=== PATIENT | male | born 1995 | race Caucasian/White ===

== ENCOUNTER 2022-03-07 22:46 | Emergency (ER) | payer SELFPAY ==
[2022-03-07] MEDS ORDERED: AUGMENTIN 875 MG TAB (AMOXICILLIN/CLAVULANATE) PO STA (22:58)
[2022-03-07] MEDS ORDERED: IBUPROFEN 800 MG (MOTRIN) TAB PO STA (22:58)
--- NOTE | 2022-03-07 22:59 | ED EENT ---
History of Present Illness General Chief Complaint: Dental Problems/Pain Stated Complaint: DENTAL PAIN Nursing Triage Note: Pt complaining of bilateral dental pain but states the right side is worse than the left Source: patient History of Present Illness Date Seen by Provider: Mar 07, 2022 Time Seen by Provider: 22:50 Initial Comments 26 yo male presenting with complaints of increasing dental pain to his wisdom teeth bilaterally but worse on right side. He reports having pain with this for over 4 5 years. He had been told that he needed his wisdom teeth removed but was not able to get that done while he was in the . He has had pain off and on over the years but usually gets better on its own. In the last few days he has had increasing dental pain to his wisdom teeth and it was worse on the right side. He denies having fever, chills, drainage from the teeth, acute trauma, facial swelling. He has tried [id number] Tylenol and ibuprofen with little to no improvement. He does not have a primary care provider or dentist. The pain seems worse at night. Timing/Duration: gradual Severity: severe Location: mouth, dental Prearrival Treatment: over the counter meds Modifying Factors: Worse With Other (chewing and eating makes the pain worse) Associated Symptoms: No change in hearing, No cough, No drooling, No ear drainage, No facial pain/swelling, No fever, No malaise, No nasal congestion/drainage, No poor fluid intake, No poor solids intake, No sinus infection, No sore throat; tooth pain; No voice change Allergies and Home Medications Allergies Coded Allergies: No Known Drug Allergies (Unverified , 03/07/22) Patient Home Medication List Home Medication List Reviewed: Yes Amoxicillin/Potassium Clav (Amox Tr-K Clv 875-125 mg Tab) 875 Mg-125 Mg Tablet, 1 EACH PO BID Prescribed by: LESIA ZAIDI on 03/07/222321 Ibuprofen (Ibuprofen) 800 Mg Tablet, 800 MG PO Q8H PRN for PAIN Prescribed by: LESIA ZAIDI on 03/07/222321 Tramadol HCl (Tramadol HCl) 50 Mg Tablet, 50 MG PO Q6H PRN for PAIN Prescribed by: LESIA ZAIDI on 03/07/222322 Review of Systems Review of Systems Constitutional: No chills, No fever Eyes: No Symptoms Reported Ears: No Symptoms Reported Nose: no symptoms reported Mouth: see HPI Throat: no symptoms reported Respiratory: no symptoms reported Cardiovascular: no symptoms reported Gastrointestinal: no symptoms reported Musculoskeletal: no symptoms reported Skin: no symptoms reported Past Mczwucj-Glpctb-Sbtert Hx Patient Social History Tobacco Use?: Yes Tobacco type used: Cigarettes Physical Exam Vital Signs Vital Signs - First Documented 03/07/22 22:52 Pulse 85 Resp 18 B/P (MAP) 129/97 (108) Pulse Ox 99 O2 Delivery Room Air Height, Weight, BMI Height: '" Weight: lbs. oz. kg; BMI Method: General Appearance: WD/WN, no apparent distress Eyes: bilateral eye PERRL, bilateral eye EOMI Mouth/Throat: pharynx normal, dental tenderness (widespread dental decay and swelling to gums around his wisdom teeth bilaterally and both maxiallary and mandibular. ) Neck: non-tender, full range of motion, supple, normal inspection Cardiovascular: normal peripheral pulses Neurologic/Psychiatric: alert Skin: normal color, warm/dry Progress/Results/Core Measures Results/Orders My Orders Orders - LESIA ZAIDI MD Amoxicillin/Clavulanate Tablet (Augmenti (03/07/22 22:58) Tramadol Tablet (Ultram Tablet) (03/07/22 22:58) Ibuprofen Tablet (Motrin Tablet) (03/07/22 22:58) Vital Signs/I&O 03/07/22 03/07/22 22:52 23:12 Pulse 85 85 Resp 18 18 B/P (MAP) 129/97 (108) 129/97 Pulse Ox 99 99 O2 Delivery Room Air Room Air Blood Pressure Mean: 108 Progress Progress Note : Progress Note With no definite abscess on physical exam, will cover him with antibiotics for possible infection, ibuprofen for pain and inflammation, tramadol for severe pain. Given information for the [facility] clinic as well as local dental clinics. Encouraged to follow-up for definitive care and continued control of his symptoms. Given first dose of medications here in the ED and prescription sent to the pharmacy. Departure Impression Primary Impression: Chronic dental pain Additional Impression: Pain due to dental caries Disposition: HOME, SELF-CARE Condition: Stable Departure-Patient Inst. Decision time for Depature: 23:17 Referrals: NO,LOCAL PHYSICIAN (PCP) Primary Care Physician [facility] Patient Instructions: Tooth Decay ED, Dental Pain ED Add. Discharge Instructions: Take the full course of antibiotics to treat for dental pain and infection. Take the Ibuprofen 800 mg every 8 hours to help with inflammation. Tramadol 50 mg every 6 hours as needed for severe pain. May also take Acetaminophen 650 mg every 6 hours as needed for pain. Call [facility] clinic at [phone] to get established with primary care provider f or follow up. The [facility] clinic also has dental services but they may only be in [place]. You can check online or with the clinic when you call for follow up. All discharge instructions reviewed with patient and/or family. Voiced understanding. Scripts Tramadol HCl (Tramadol HCl) 50 Mg Tablet 50 MG PO Q6H PRN for PAIN for 3 Days, #12 TAB 0 Refills Prov: LESIA ZAIDI MD 03/07/22 Ibuprofen (Ibuprofen) 800 Mg Tablet 800 MG PO Q8H PRN for PAIN for 10 Days, #30 TAB 0 Refills Prov: LESIA ZAIDI MD 03/07/22 Amoxicillin/Potassium Clav (Amox Tr-K Clv 875-125 mg Tab) 875 Mg-125 Mg Tablet 1 EACH PO BID for dental infection for 7 Days, #14 TAB 0 Refills Prov: LESIA ZAIDI MD 03/07/22 LESIA ZAIDI MD Mar 07, 2022 22:59
[2022-03-07 23:12] VITALS: BP 129/97
[2022-03-07] MEDS ORDERED: IBUP-1780 PO (23:22)
[2022-03-07] MEDS ORDERED: TRM50T PO (23:22)
[2022-03-07] MEDS ORDERED: AMOX1TAB12 PO (23:22)
== END 2022-03-07 23:24 | disposition home or self-care (01) ==
LOC: ER FS 22:50
DX: K02.9 Dental caries, unspecified (principal); F17.210 Nicotine dependence, cigarettes, uncomplicated; Z28.310 Unvaccinated for COVID-19
CPT/HCPCS: 99283